=== PATIENT | female | born 1955 | race Caucasian/White ===

== ENCOUNTER 2017-07-08 10:45 | Outpatient (CLI) | payer BC ==
--- NOTE | 2017-07-08 12:22 | MMO ---
BILATERAL SCREENING MAMMOGRAM: INDICATION: Annual exam. COMPARISON: Prior exam dated 08/22/15. FINDINGS: The interpretation of this exam was assisted with computer-aided detection. The breast parenchyma is predominantly fatty replaced. There are benign-appearing calcifications within the right and left breasts. No suspicious mass, cluster of microcalcifications, or area of architectural distortion is evident. IMPRESSION: BI-RADS category 2 - benign. Recommend routine annual mammographic screening. POS: JOHN
== END 2017-07-08 10:46 | disposition home or self-care (01) ==
LOC: MAMMO 10:45
PROVIDERS: ATTEND Family Medicine
DX: Z12.31 Encounter for screening mammogram for malignant neoplasm of breast (principal)
CPT/HCPCS: 77067; G0202

== ENCOUNTER 2019-02-08 11:53 | Outpatient (CLI) | payer OTHER ==
--- NOTE | 2019-02-08 12:49 | MMO ---
Bilateral MAMMO Bilat Screen [id number]. CLINICAL HISTORY: Patient is 63 years old and is seen for screening. The patient has no family history of breast cancer. The patient has no personal history of cancer. VIEWS: The views performed were: bilateral craniocaudal with tomosynthesis and bilateral mediolateral oblique with tomosynthesis. FILMS COMPARED: The present examination has been compared to prior imaging studies performed at [facility] on 06/06/2010, 08/25/2011, 12/20/2013, 08/17/2015 and 07/08/2017. MAMMOGRAM FINDINGS: The breasts are almost entirely fat. There are benign appearing calcifications seen in both breasts. There are no suspicious masses, suspicious calcifications, or new areas of architectural distortion. IMPRESSION: THERE IS NO MAMMOGRAPHIC EVIDENCE OF MALIGNANCY. A ROUTINE FOLLOW-UP MAMMOGRAM IN 1 YEAR IS RECOMMENDED. THE RESULTS OF THIS EXAM WERE SENT TO THE PATIENT. ACR BI-RADS Category 2 - Benign finding MAMMOGRAPHY NOTE: 1. A negative mammogram report should not delay a biopsy if a dominant of clinically suspicious mass is present. 2. Approximately 10% to 15% of breast cancers are not detected by mammography. 3. Adenosis and dense breasts may obscure an underlying neoplasm.
== END 2019-02-08 11:54 | disposition home or self-care (01) ==
LOC: BICMAMMO 11:53
PROVIDERS: ATTEND Nurse Practitioner Family
DX: Z12.31 Encounter for screening mammogram for malignant neoplasm of breast (principal)
CPT/HCPCS: 77063; 77067

== ENCOUNTER 2021-02-14 14:41 | Outpatient (CLI) | payer BC | END 2021-02-14 14:42 | disposition home or self-care (01) | LOC: BICMAMMO 14:41 | PROVIDERS: ATTEND Nurse Practitioner Family | DX: Z12.31 Encounter for screening mammogram for malignant neoplasm of breast (principal) | CPT/HCPCS: 77063; 77067 ==

== ENCOUNTER 2021-05-08 15:48 | Inpatient (IN) | payer BC ==
[~2021-05-08 15:48] MED LIST: Iopamidol-370 76% 500 ML 1 ML ONE
[2021-05-08 18:07] LABS: #Basophils 0.1 thou/uL (0.0-0.2); #Eosinphils 0.1 thou/uL (0.0-0.7); #Lymphocytes 2.7 thou/uL (1.20-3.40); #Neutrophils 4.9 thou/uL (1.40-6.50); %Basophils 0.6 % (0.0-1.0); %Eosinophils 0.6 % (0.0-10.0); %Lymphocytes 30.8 % (21.0-51.0); %Monocytes 11.5 % (0.0-10.0); %Neutrophils 56.5 % (42.0-75.0); Hemoglobin 12.5 g/dL (12.0-16.0); Mean Corpuscular Hemoglobin 29.2 pg (27.0-31.0); Mean Corpuscular Volume 88.4 fL (78.0-98.0); Platelet Count 252 thou/uL (130-400); RBC Distribution Width 13.2 % (11.5-14.5); White Blood Cell (WBC) Count 8.7 thou/uL (4.8-10.8)
[2021-05-08 18:31] LABS: ALT (SGPT) 15 U/L (8-55); AST (SGOT) 11 U/L (5-34); Alkaline Phosphatase 85 U/L (40-110); Anion Gap 14 mmol/L (10-20); BUN (Urea Nitrogen) 11 mg/dL (9.8-20.1); Bilirubin, Total 0.4 mg/dL (0.2-1.2); Calc. Creatinine Clearance 0 mL/min (70-130); Calcium 9.1 mg/dL (7.8-10.44); Carbon Dioxide 23 mmol/L (23-31); Chloride 105 mmol/L (98-107); Globulin 3.1 g/dL (2.4-3.5); Glucose 122 mg/dL (80-115); Potassium 4.5 mmol/L (3.5-5.1); Protein, Total 7.1 g/dL (5.8-8.1); Sodium 137 mmol/L (136-145)
[2021-05-08] MEDS ORDERED: Enoxaparin Sodium 100 MG/ML SYRINGE ONE (21:16)
[2021-05-08 21:42] LABS: INR-International Normal Ratio 1.1; Prothrombin Time 14.5 sec (12.0-14.7)
[2021-05-08 21:43] LABS: PTT 30.1 sec (22.9-36.1)
[2021-05-09 01:16] LABS: SARS-CoV-2 NAA Rapid Test Not Detected (NotDetected)
[2021-05-09] MEDS ORDERED: Ondansetron PF 4 MG/2 ML Vial IVP PRN (02:50)
[2021-05-09] MEDS ORDERED: Ondansetron ODT 4 MG TAB PO PRN (02:50)
[2021-05-09] MEDS ORDERED: Piperacillin/Tazobactam 3.375 GM in Sodium Chloride 0.9% 100 ML IVPB SCH ×2 (03:15→12:00)
[2021-05-09] MEDS ORDERED: Piperacillin/Tazobactam 3.375 GM VIAL ONE ×2 (04:21→11:55)
[2021-05-09] MEDS: Sodium Chloride 0.9% 1,000 ML IV SCH ×2 (04:39→12:18)
[2021-05-09 04:56] LABS: Anion Gap 12 mmol/L (10-20); BUN (Urea Nitrogen) 10 mg/dL (9.8-20.1); Calc. Creatinine Clearance 129 mL/min (70-130); Calcium 8.6 mg/dL (7.8-10.44); Carbon Dioxide 20 mmol/L (23-31); Chloride 108 mmol/L (98-107); Glucose 123 mg/dL (80-115); Potassium 3.8 mmol/L (3.5-5.1); Sodium 136 mmol/L (136-145)
[2021-05-09 04:57] LABS: Band 2 % (5-11); Hemoglobin 11.9 g/dL (12.0-16.0); Hypochromia SLIGHT = 6-15 cells (100X) (0-5/hpf); Lymphocytes 32 % (21-51); MDiff Complete? YES; Mean Corpuscular HGB CONC 33.2 g/dL (32.0-36.0); Mean Corpuscular Hemoglobin 29.2 pg (27.0-31.0); Mean Corpuscular Volume 87.9 fL (78.0-98.0); Mean Platelet Volume 8.3 fL (7.4-10.4); Monocytes 11 % (0-10); Neutrophil 55 % (42-75); Platelet Count 199 thou/uL (130-400); RBC Distribution Width 13.2 % (11.5-14.5); Red Blood Cell (RBC) Count 4.06 mill/uL (4.20-5.40); White Blood Cell (WBC) Count 6.9 thou/uL (4.8-10.8)
[2021-05-09] MEDS ORDERED: Zolpidem Tartrate 5 MG TAB PO PRN (09:04)
[2021-05-09] MEDS ORDERED: Cepastat Lozenges 1 LOZ PO PRN (09:04)
[2021-05-09] MEDS ORDERED: Hydrocerin (Eucerin) Cream 120 gm Jar TOP PRN (09:04)
[2021-05-09] MEDS ORDERED: Benzonatate 100 MG CAP PO PRN (09:04)
[2021-05-09] MEDS ORDERED: Calcium Carbonate 500 MG ChewTAB PO PRN (09:04)
[2021-05-09] MEDS ORDERED: Senokot S 8.6-50 MG TAB PO PRN (09:04)
[2021-05-09] MEDS ORDERED: Loperamide HCl 2 MG CAP PO PRN (09:04)
[2021-05-09] MEDS ORDERED: Loratadine 10 MG TAB PO PRN (09:04)
[2021-05-09] MEDS ORDERED: Artificial Tear Sol 15 ML BOT EA EYE PRN (09:04)
[2021-05-09] MEDS ORDERED: hydrALAZINE 20 MG/ML VIAL SLOW IVP PRN (09:04)
[2021-05-09] MEDS ORDERED: Bisacodyl 5 MG TAB PO PRN (09:04)
[2021-05-09] MEDS ORDERED: GUAIFENESIN SF SOLN 200 MG/10 ML UDCUP PO PRN (09:04)
[2021-05-09] MEDS ORDERED: Sodium Chloride 0.65% Nasal 44 ML BOT EA NARE PRN (09:04)
[2021-05-09] MEDS ORDERED: Enoxaparin Sodium 100 MG/ML SYRINGE ONE (09:05)
[2021-05-09] MEDS: Enoxaparin Sodium 100 MG/ML SYRINGE SC SCH ×2 (09:24→21:09)
[2021-05-09] MEDS ORDERED: Adenosine 6 MG/2 ML VIAL ONE (15:58)
[2021-05-09 16:14] VITALS: BMI 42.2
[2021-05-09] MEDS: HYDROcodone/Acetaminophen 5/325 mg Tablet PO PRN (21:09)
[2021-05-10] MEDS: Sodium Chloride 0.9% 1,000 ML IV SCH (02:45)
[2021-05-10 04:57] LABS: #Basophils 0.1 thou/uL (0.0-0.2); #Eosinphils 0.2 thou/uL (0.0-0.7); #Lymphocytes 2.2 thou/uL (1.20-3.40); #Monocytes 0.6 thou/uL (0.11-0.59); #Neutrophils 2.4 thou/uL (1.40-6.50); %Basophils 0.9 % (0.0-1.0); %Eosinophils 3.1 % (0.0-10.0); %Lymphocytes 40.4 % (21.0-51.0); %Monocytes 11.5 % (0.0-10.0); %Neutrophils 44.1 % (42.0-75.0); Mean Corpuscular HGB CONC 32.9 g/dL (32.0-36.0); Mean Corpuscular Volume 88.1 fL (78.0-98.0); Mean Platelet Volume 8.3 fL (7.4-10.4); Platelet Count 214 thou/uL (130-400); Red Blood Cell (RBC) Count 3.46 mill/uL (4.20-5.40); White Blood Cell (WBC) Count 5.4 thou/uL (4.8-10.8)
[2021-05-10 05:32] LABS: ALT (SGPT) 9 U/L (8-55); AST (SGOT) 9 U/L (5-34); Albumin 3.1 g/dL (3.4-4.8); Alkaline Phosphatase 66 U/L (40-110); Anion Gap 11 mmol/L (10-20); BUN (Urea Nitrogen) 8 mg/dL (9.8-20.1); Bilirubin, Total 0.7 mg/dL (0.2-1.2); Calc. Creatinine Clearance 126 mL/min (70-130); Carbon Dioxide 20 mmol/L (23-31); Chloride 110 mmol/L (98-107); Globulin 2.5 g/dL (2.4-3.5); Glucose 117 mg/dL (80-115); Magnesium 1.8 mg/dL (1.6-2.6); Phosphorus 2.8 mg/dL (2.3-4.7); Potassium 3.7 mmol/L (3.5-5.1); Protein, Total 5.6 g/dL (5.8-8.1); Sodium 137 mmol/L (136-145)
[2021-05-10] MEDS: Enoxaparin Sodium 100 MG/ML SYRINGE SC SCH ×2 (08:45→21:20)
[2021-05-10] MEDS ORDERED: Furosemide 20 MG/2 ML VIAL SLOW IVP SCH (11:00)
[2021-05-10] MEDS: medroxyPROGESTERone Acetate 5 MG TAB PO SCH ×2 (13:07→21:21)
[2021-05-10] MEDS: HYDROcodone/Acetaminophen 5/325 mg Tablet PO PRN (14:34)
[2021-05-11] MEDS: medroxyPROGESTERone Acetate 5 MG TAB PO SCH ×3 (04:11→20:41)
[2021-05-11] MEDS: Enoxaparin Sodium 100 MG/ML SYRINGE SC SCH (08:54)
[2021-05-11] MEDS: Ferrous Sulfate 325 MG TAB PO SCH (16:03)
[2021-05-11] MEDS: HYDROcodone/Acetaminophen 5/325 mg Tablet PO PRN (18:58)
[2021-05-11] MEDS: Apixaban 5 MG TAB PO SCH (20:40)
[2021-05-12] MEDS: HYDROcodone/Acetaminophen 5/325 mg Tablet PO PRN (04:24)
[2021-05-12] MEDS: medroxyPROGESTERone Acetate 5 MG TAB PO SCH (04:26)
[2021-05-12 04:48] LABS: #Eosinphils 0.1 thou/uL (0.0-0.7); #Lymphocytes 2.4 thou/uL (1.20-3.40); #Monocytes 0.6 thou/uL (0.11-0.59); #Neutrophils 1.9 thou/uL (1.40-6.50); %Lymphocytes 47.7 % (21.0-51.0); %Monocytes 12.2 % (0.0-10.0); Mean Corpuscular HGB CONC 32.4 g/dL (32.0-36.0); Mean Corpuscular Hemoglobin 28.6 pg (27.0-31.0); Mean Corpuscular Volume 88.2 fL (78.0-98.0); Mean Platelet Volume 7.9 fL (7.4-10.4); Platelet Count 252 thou/uL (130-400); Red Blood Cell (RBC) Count 3.48 mill/uL (4.20-5.40)
[2021-05-12 05:11] LABS: Anion Gap 12 mmol/L (10-20); BUN (Urea Nitrogen) 7 mg/dL (9.8-20.1); Calc. Creatinine Clearance 122 mL/min (70-130); Calcium 8.7 mg/dL (7.8-10.44); Carbon Dioxide 26 mmol/L (23-31); Chloride 105 mmol/L (98-107); Glucose 112 mg/dL (80-115); Potassium 3.6 mmol/L (3.5-5.1); Sodium 139 mmol/L (136-145)
[2021-05-12 09:08] LABS: Hemoglobin 9.9 g/dL (12.0-16.0); Platelet Count 237 thou/uL (130-400)
[2021-05-12 09:22] VITALS: BP 143/62; TEMP 98.4
[2021-05-12] MEDS: Ferrous Sulfate 325 MG TAB PO SCH (09:22)
[2021-05-12] MEDS: Apixaban 5 MG TAB PO SCH (09:22)
[2021-05-12 09:29] LABS: Calc. Creatinine Clearance 138 mL/min (70-130)
== END 2021-05-12 10:35 | disposition home or self-care (01) | DRG 176 ==
LOC: ERS 15:48 → 2NO 21:26 → ERHOLD 21:38 → OBSVTOIN 05-09 09:05 → 2NO 05-09 16:26
PROVIDERS: ADMIT Internal Medicine; ATTEND Internal Medicine
DX: I26.99 Other pulmonary embolism without acute cor pulmonale (principal); Z68.41 Body mass index [BMI] 40.0-44.9, adult; N94.89 Other specified conditions associated with female genital organs and menstrual cycle; R53.81 Other malaise; D64.9 Anemia, unspecified; E66.9 Obesity, unspecified; K76.0 Fatty (change of) liver, not elsewhere classified; D18.03 Hemangioma of intra-abdominal structures; Z20.822 Contact with and (suspected) exposure to COVID-19; Z90.49 Acquired absence of other specified parts of digestive tract; Z93.3 Colostomy status
CPT/HCPCS: 0240U; 36415; 71045; 71275; 74177; 76856; 80048; 80053; 83735; 83880; 84100; 84484; 85025; 85379; 85610; 85730; 93005; 93306; 96372; G0378; J0153; J1650; J1940; J2543; J3490; Q9967

== ENCOUNTER 2021-05-14 | Emergency (ER) | payer BC | END 2021-05-14 19:32 | disposition short-term general hospital (02) | DX: N93.9 Abnormal uterine and vaginal bleeding, unspecified (principal) ==

== ENCOUNTER 2021-09-17 10:35 | Outpatient (CLI) | payer BC | END 2021-09-17 10:36 | disposition home or self-care (01) | LOC: BICCT 10:35 | PROVIDERS: ATTEND Specialist | DX: Z48.815 Encounter for surgical aftercare following surgery on the digestive system (principal); Z93.3 Colostomy status; Z90.49 Acquired absence of other specified parts of digestive tract; R16.0 Hepatomegaly, not elsewhere classified | CPT/HCPCS: 74177; 82565; Q9967 ==

== ENCOUNTER 2021-12-12 12:15 | Inpatient (IN) | payer BC ==
[2021-12-17] MEDS ORDERED: Acetaminophen 500 MG TAB ONE ×2 (06:15)
[2021-12-17] MEDS ORDERED: Ketorolac Tromethamine 30 MG/ML VIAL ONE (06:15)
[2021-12-17] MEDS ORDERED: Lidocaine 1% w/Epinephrine 1:100K 30 ML VIAL ONE (06:38)
[2021-12-17] MEDS ORDERED: Bupivacaine 0.25% 10 ML VIAL ONE ×2 (06:38)
[2021-12-17] MEDS ORDERED: Fentanyl 100 MCG/2 ML VIAL ONE ×2 (06:45→07:09)
[2021-12-17] MEDS ORDERED: Midazolam HCl 2 mg/2 ml Vial ONE (07:09)
[2021-12-17] MEDS ORDERED: Lidocaine 2% Jelly 5 ML TUBE ONE (07:09)
[2021-12-17] MEDS ORDERED: cefOXitin 2 GM VIAL ONE (07:22)
[2021-12-17] MEDS ORDERED: Sodium Chloride 0.9% 100 ML ONE (07:22)
[2021-12-17] MEDS ORDERED: Bupivacaine HCl 0.5%/Epinephrine 1:200,000/PF 30 ml Vial ONE (07:25)
[2021-12-17] MEDS ORDERED: Dexamethasone 20 MG/5 ML VIAL ONE (07:34)
[2021-12-17] MEDS ORDERED: Rocuronium Bromide 10 MG/ML (10ML VIAL) ONE (07:34)
[2021-12-17] MEDS ORDERED: Glycopyrrolate 0.2 MG/ML 5 ML SYRINGE ONE (07:34)
[2021-12-17] MEDS ORDERED: Esmolol 100 MG/10 ML VIAL ONE (07:34)
[2021-12-17] MEDS ORDERED: Ondansetron PF 4 MG/2 ML Vial ONE (07:34)
[2021-12-17] MEDS ORDERED: PHENYLEPHRINE-NS 100 MCG/ML 10 ML SYRINGE ONE ×2 (07:34→09:44)
[2021-12-17] MEDS ORDERED: PROPOFOL 200 MG/20 ML VIAL ONE (07:34)
[2021-12-17] MEDS ORDERED: Lidocaine 1% PF 5 ML VIAL ONE (07:34)
[2021-12-17] MEDS ORDERED: ePHEDrine 50 MG/ML VIAL ONE (07:34)
[2021-12-17] MEDS ORDERED: cefOXitin Sodium/Dextrose 2 GM/50 ML BAG ONE (10:38)
[2021-12-17] MEDS ORDERED: Ondansetron HCl/PF 4 MG/2 ML Vial IVP PRN (10:57)
[2021-12-17] MEDS ORDERED: Promethazine HCl 25 MG/ML VIAL IVPB PRN (10:57)
[2021-12-17] MEDS ORDERED: Promethazine HCl 25 MG/ML VIAL IM PRN ×2 (10:57→12:12)
[2021-12-17] MEDS ORDERED: HYDROmorphone 2 MG/ML VIAL SLOW IVP PRN (10:57)
[2021-12-17] MEDS ORDERED: hydrALAZINE 20 MG/ML VIAL SLOW IVP PRN (12:12)
[2021-12-17] MEDS ORDERED: Morphine 4 MG/ML VIAL SLOW IVP PRN ×2 (12:12→12:35)
[2021-12-17] MEDS ORDERED: Ondansetron PF 4 MG/2 ML Vial IVP PRN (12:12)
[2021-12-17] MEDS: D5 1/2 NS w/20 mEq KCL 1,000 ML IV SCH ×2 (14:53→21:21)
[2021-12-17] MEDS: Ketorolac Tromethamine 30 MG/ML VIAL IVP SCH ×2 (14:54→17:26)
[2021-12-17 15:31] VITALS: BMI 37.8
[2021-12-17] MEDS: Famotidine/PF 20 mg/2ml Vial SLOW IVP SCH (17:33)
[2021-12-17] MEDS: Famotidine 20 MG TAB PO SCH (21:20)
[2021-12-17] MEDS: Enoxaparin Sodium 40 MG/0.4 ML SYRINGE SC SCH (21:20)
[2021-12-17] MEDS: medroxyPROGESTERone Acetate 5 MG TAB PO SCH (21:23)
[2021-12-18] MEDS: Ketorolac Tromethamine 30 MG/ML VIAL IVP SCH ×6 (00:15→23:59)
[2021-12-18] MEDS: D5 1/2 NS w/20 mEq KCL 1,000 ML IV SCH ×3 (05:56→19:51)
[2021-12-18 06:17] LABS: Anion Gap 14 mmol/L (10-20); BUN (Urea Nitrogen) 4 mg/dL (9.8-20.1); Calc. Creatinine Clearance 109 mL/min (70-130); Calcium 8.6 mg/dL (7.8-10.44); Carbon Dioxide 17 mmol/L (23-31); Chloride 109 mmol/L (98-107); Glucose 143 mg/dL (80-115); Potassium 4.4 mmol/L (3.5-5.1); Sodium 136 mmol/L (136-145)
[2021-12-18 08:00] LABS: #Monocytes 1.1 thou/uL (0.11-0.59); %Basophils 0.1 % (0.0-1.0); %Eosinophils 0.1 % (0.0-10.0); %Lymphocytes 19.5 % (21.0-51.0); %Monocytes 10.8 % (0.0-10.0); %Neutrophils 69.4 % (42.0-75.0); Hemoglobin 12.9 g/dL (12.0-16.0); Mean Corpuscular HGB CONC 32.5 g/dL (32.0-36.0); Mean Corpuscular Hemoglobin 30.4 pg (27.0-31.0); Mean Corpuscular Volume 93.6 fL (78.0-98.0); Mean Platelet Volume 7.1 fL (7.4-10.4); Platelet Count 260 thou/uL (130-400); Red Blood Cell (RBC) Count 4.25 mill/uL (4.20-5.40)
[2021-12-18] MEDS: Famotidine 20 MG TAB PO SCH ×2 (09:19→19:49)
[2021-12-18] MEDS: Famotidine/PF 20 mg/2ml Vial SLOW IVP SCH ×2 (09:20→19:51)
[2021-12-18] MEDS: medroxyPROGESTERone Acetate 5 MG TAB PO SCH ×2 (09:20→19:49)
[2021-12-18] MEDS ORDERED: HYDROcodone/Acetaminophen 7.5/325 mg Tablet PO PRN (11:44)
[2021-12-18] MEDS: Enoxaparin Sodium 40 MG/0.4 ML SYRINGE SC SCH (19:49)
[2021-12-19] MEDS ORDERED: D5 1/2 NS w/20 mEq KCL 1,000 ML IV SCH (05:30)
[2021-12-19] MEDS: Ketorolac Tromethamine 30 MG/ML VIAL IVP SCH (05:37)
[2021-12-19] MEDS: D5 1/2 NS w/20 mEq KCL 1,000 ML IV SCH (06:44)
[2021-12-19 08:07] VITALS: BP 124/79; TEMP 98.2
[2021-12-19] MEDS: Famotidine 20 MG TAB PO SCH (09:35)
[2021-12-19] MEDS: medroxyPROGESTERone Acetate 5 MG TAB PO SCH (09:35)
[2021-12-19] MEDS: Famotidine/PF 20 mg/2ml Vial SLOW IVP SCH (09:36)
== END 2021-12-19 11:13 | disposition home or self-care (01) | DRG 330 ==
LOC: SURG A 12-17 05:44
PROVIDERS: ADMIT Specialist; ATTEND Specialist
PROC: 0DBN0ZZ Excision of Sigmoid Colon, Open Approach (ICD-10-PCS; principal; 2021-12-17)
PROC: 0WQF0ZZ Repair Abdominal Wall, Open Approach (ICD-10-PCS; 2021-12-17)
DX: Z43.3 Encounter for attention to colostomy (principal); K57.32 Diverticulitis of large intestine without perforation or abscess without bleeding; K43.5 Parastomal hernia without obstruction or gangrene; K43.9 Ventral hernia without obstruction or gangrene; E66.01 Morbid (severe) obesity due to excess calories; Z68.37 Body mass index [BMI] 37.0-37.9, adult; Z90.49 Acquired absence of other specified parts of digestive tract; Z88.3 Allergy status to other anti-infective agents; Z88.2 Allergy status to sulfonamides
CPT/HCPCS: 36415; 80048; 85025; 88307; A4649; C1889; J0694; J1100; J1650; J1885; J2250; J2405; J2704; J3010; J3480; J3490; S0020; S0028

== ENCOUNTER 2022-02-17 12:13 | Outpatient (CLI) | payer BC | END 2022-02-17 12:14 | disposition home or self-care (01) | LOC: BICMAMMO 12:13 | PROVIDERS: ATTEND Nurse Practitioner Family | DX: Z12.31 Encounter for screening mammogram for malignant neoplasm of breast (principal) | CPT/HCPCS: 77063; 77067 ==

== ENCOUNTER 2022-07-24 06:54 | Observation (INO) | payer MEDICARE, BC ==
[2022-07-23 11:25] VITALS: BMI 34.0
[2022-07-24] MEDS ORDERED: Acetaminophen 500 MG TAB ONE (07:10)
[2022-07-24] MEDS ORDERED: Ketorolac Tromethamine 30 MG/ML VIAL ONE (07:10)
[2022-07-24] MEDS ORDERED: Scopolamine 1.5 mg/72 hour Patch ONE (08:18)
[2022-07-24] MEDS ORDERED: fentaNYL Citrate/PF 100 MCG/2 ML SYRINGE ONE ×2 (09:24→11:21)
[2022-07-24] MEDS ORDERED: Famotidine/PF 20 mg/2ml Vial ONE (09:33)
[2022-07-24] MEDS ORDERED: CEFAZOLIN 2 GM VIAL ONE (09:45)
[2022-07-24] MEDS ORDERED: Sodium Chloride 0.9% 100 ML ONE (09:45)
[2022-07-24] MEDS ORDERED: diphenhydrAMINE 50 MG/ML VIAL ONE (09:48)
[2022-07-24] MEDS ORDERED: Metoclopramide HCl 10 MG/2 ML VIAL ONE (09:48)
[2022-07-24] MEDS ORDERED: Glycopyrrolate 0.2 MG/ML 5 ML SYRINGE ONE (09:48)
[2022-07-24] MEDS ORDERED: Ondansetron PF 4 MG/2 ML Vial ONE (09:48)
[2022-07-24] MEDS ORDERED: PROPOFOL 200 MG/20 ML VIAL ONE (09:48)
[2022-07-24] MEDS ORDERED: Dexamethasone 20 MG/5 ML VIAL ONE (09:48)
[2022-07-24] MEDS ORDERED: NEOSTIGMINE 3 MG/3 ML SYR 3 MG/3 ML SYRINGE ONE (09:48)
[2022-07-24] MEDS ORDERED: Rocuronium Bromide 10 MG/ML (10ML VIAL) ONE (09:48)
[2022-07-24] MEDS ORDERED: Bupivacaine/Epinephrine 0.25% 30 ML VIAL ONE (10:08)
[2022-07-24] MEDS ORDERED: diphenhydrAMINE 25 MG CAP PO PRN (12:13)
[2022-07-24] MEDS ORDERED: diphenhydrAMINE 50 MG/ML VIAL IVP PRN (12:13)
[2022-07-24] MEDS ORDERED: Promethazine HCl 25 MG/ML VIAL IVPB PRN (12:13)
[2022-07-24] MEDS ORDERED: diphenhydrAMINE 50 MG/ML VIAL IM PRN (12:13)
[2022-07-24] MEDS ORDERED: Ondansetron HCl/PF 4 MG/2 ML Vial IVP PRN (12:13)
[2022-07-24] MEDS ORDERED: Ondansetron PF 4 MG/2 ML Vial IVP PRN ×2 (12:13→15:23)
[2022-07-24] MEDS ORDERED: Zolpidem Tartrate 5 MG TAB PO PRN (12:13)
[2022-07-24] MEDS ORDERED: Promethazine HCl 25 MG/ML VIAL IM PRN ×2 (12:13)
[2022-07-24] MEDS ORDERED: Naloxone HCl 0.4 mg/ml Vial IV PRN (12:13)
[2022-07-24] MEDS ORDERED: Communication Order-Pharmacy FS SCH (12:15)
[2022-07-24] MEDS ORDERED: Fentanyl CADD 100 ML IVPB PRN (12:35)
[2022-07-24] MEDS ORDERED: Dextrose 5% in Water 1,000 ML IV PRN (15:23)
[2022-07-24] MEDS ORDERED: HYDROcodone/Acetaminophen 10/325 mg Tablet PO PRN (15:23)
[2022-07-24] MEDS ORDERED: traMADol HCl 50 MG TAB PO PRN ×2 (15:23)
[2022-07-24] MEDS ORDERED: Dextrose 50% Abboject 50 ML SYRINGE SLOW IVP PRN (15:23)
[2022-07-24] MEDS ORDERED: Morphine 4 MG/ML VIAL SLOW IVP PRN ×2 (15:23→15:52)
[2022-07-24] MEDS ORDERED: TETANUS, DIPHTHERIA TOX,ADULT (TDVAX) 0.5 ML VIAL IM ONE (15:23)
[2022-07-24] MEDS: D5 1/2 NS w/20 mEq KCL 1,000 ML IV SCH ×2 (17:07→20:24)
[2022-07-24] MEDS: Famotidine 20 MG TAB PO SCH (20:23)
[2022-07-25 06:22] LABS: #Lymphocytes 1.7 thou/uL (1.20-3.40); #Monocytes 0.9 thou/uL (0.11-0.59); #Neutrophils 8.2 thou/uL (1.40-6.50); %Basophils 0.1 % (0.0-1.0); %Eosinophils 0.1 % (0.0-10.0); %Lymphocytes 15.5 % (21.0-51.0); %Monocytes 8.7 % (0.0-10.0); %Neutrophils 75.6 % (42.0-75.0); Hemoglobin 11.8 g/dL (12.0-16.0); Mean Corpuscular HGB CONC 32.2 g/dL (32.0-36.0); Mean Corpuscular Hemoglobin 30.1 pg (27.0-31.0); Mean Corpuscular Volume 93.5 fl (78.0-98.0); Mean Platelet Volume 7.3 fL (7.4-10.4); Platelet Count 241 thou/uL (130-400); RBC Distribution Width 12.2 % (11.5-14.5); Red Blood Cell (RBC) Count 3.92 mill/uL (4.20-5.40); White Blood Cell (WBC) Count 10.8 thou/uL (4.8-10.8)
[2022-07-25 06:47] LABS: Anion Gap 10 mmol/L (10-20); BUN (Urea Nitrogen) 8 mg/dL (9.8-20.1); Calc. Creatinine Clearance 102 mL/min (70-130); Calcium 8.4 mg/dL (7.8-10.44); Carbon Dioxide 24 mmol/L (23-31); Chloride 105 mmol/L (98-107); Estimated GFR 94; Glucose 156 mg/dL (80-115); Potassium 3.9 mmol/L (3.5-5.1); Sodium 135 mmol/L (136-145)
[2022-07-25 08:28] VITALS: BP 128/75; TEMP 98.6
[2022-07-25] MEDS: Famotidine 20 MG TAB PO SCH (09:23)
[2022-07-25] MEDS ORDERED: HYDROcodone/Acetaminophen 10/325 mg Tablet PO PRN ×2 (09:53→09:54)
== END 2022-07-25 12:05 | disposition home or self-care (01) ==
LOC: SDC 06:54 → OBSVTOIN 15:06 → T4-B 15:06 → INTOOBSV 15:06
PROVIDERS: ADMIT Specialist; ATTEND Specialist
PROC: 0WUF0JZ Supplement Abdominal Wall with Synthetic Substitute, Open Approach (ICD-10-PCS; principal; 2022-07-24)
DX: K43.2 Incisional hernia without obstruction or gangrene (principal); E66.01 Morbid (severe) obesity due to excess calories; Z68.34 Body mass index [BMI] 34.0-34.9, adult; Z79.899 Other long term (current) drug therapy; Z88.1 Allergy status to other antibiotic agents; Z88.2 Allergy status to sulfonamides; Z20.822 Contact with and (suspected) exposure to COVID-19
CPT/HCPCS: 49560; 49568; 80048; 85025; 90714; 96374; C1781; C1889; G0378 ×2; J3010; U0003; U0005; 36415; J1100; J1200; J1885; J2405; J2704; J2765; J3480; J3490; S0028

== ENCOUNTER 2023-05-27 11:53 | Outpatient (CLI) | payer MEDICARE, BC | END 2023-05-27 11:54 | disposition home or self-care (01) | LOC: BICMAMMO 11:53 | PROVIDERS: ATTEND Nurse Practitioner Family | DX: Z12.31 Encounter for screening mammogram for malignant neoplasm of breast (principal) | CPT/HCPCS: 77063; 77067 ==

== ENCOUNTER 2023-12-18 09:46 | Outpatient (CLI) | payer MEDICARE, BC | END 2023-12-18 09:47 | disposition home or self-care (01) | LOC: BICULT 09:46 | PROVIDERS: ATTEND Nurse Practitioner Family | DX: M25.551 Pain in right hip (principal); M79.651 Pain in right thigh | CPT/HCPCS: 76999 ==

== ENCOUNTER 2024-03-29 10:34 | Outpatient (CLI) | payer MEDICARE, BC | END 2024-03-29 10:35 | disposition home or self-care (01) | LOC: BICRAD 10:34 | PROVIDERS: ATTEND Neurological Surgery | DX: M25.551 Pain in right hip (principal); M16.11 Unilateral primary osteoarthritis, right hip ==

== ENCOUNTER 2024-04-13 09:37 | Emergency (ER) | payer MEDICARE, BC | END 2024-04-13 10:37 | disposition home or self-care (01) | LOC: ERS 09:37 | DX: R03.0 Elevated blood-pressure reading, without diagnosis of hypertension (principal) | CPT/HCPCS: 93005 ==

== ENCOUNTER 2024-08-11 14:04 | Outpatient (CLI) | payer MEDICARE, BC | END 2024-08-11 14:05 | disposition home or self-care (01) | LOC: BICRAD 14:04 | PROVIDERS: ATTEND Nurse Practitioner Family | DX: Z01.818 Encounter for other preprocedural examination (principal) | CPT/HCPCS: 71046 ==

== ENCOUNTER 2024-08-31 12:54 | Outpatient (CLI) | payer MEDICARE, BC ==
[2024-08-31 14:48] LABS: #Basophils 0.03 10x3/uL (0.0-0.2); %Basophils 0.5 % (0.0-1.0); %Lymphocytes 33.8 % (21.0-51.0); %Monocytes 12.3 % (0.0-10.0); %Neutrophils 52.2 % (42.0-75.0); Hematocrit 44.9 % (36.0-47.0); Hemoglobin 14.6 g/dL (12.0-16.0); Mean Corpuscular HGB CONC 32.5 g/dL (32.0-36.0); Mean Corpuscular Hemoglobin 29.3 pg (27.0-31.0); Mean Platelet Volume 9.4 fL (7.4-10.4); Platelet Count 304 10x3/uL (130-400); RBC Distribution Width 13.2 % (11.5-14.5); Red Blood Cell (RBC) Count 4.99 mill/uL (4.20-5.40)
[2024-08-31 15:03] LABS: Prothrombin Time 12.8 sec (12.0-14.7)
[2024-08-31 15:05] LABS: Anion Gap 16 mmol/L (10-20); BUN (Urea Nitrogen) 13 mg/dL (9.8-20.1); Calc. Creatinine Clearance 0 mL/min (70-130); Calcium 9.4 mg/dL (7.8-10.44); Carbon Dioxide 26 mmol/L (23-31); Chloride 105 mmol/L (98-107); Estimated GFR 96; Glucose 88 mg/dL (80-115); Potassium 3.8 mmol/L (3.5-5.1); Sodium 143 mmol/L (136-145)
== END 2024-08-31 12:55 | disposition home or self-care (01) ==
LOC: LABBT 12:54
PROVIDERS: ATTEND Student in an Organized Health Care Education/Training Program
DX: Z01.818 Encounter for other preprocedural examination (principal); M16.11 Unilateral primary osteoarthritis, right hip
CPT/HCPCS: 80048; 85025; 85610; 85730; 87081; 93005; 93010

== ENCOUNTER 2025-06-01 10:51 | Outpatient (CLI) | payer MEDICARE, BC | END 2025-06-01 10:52 | disposition home or self-care (01) | LOC: BICMAMMO 10:51 | PROVIDERS: ATTEND Nurse Practitioner Family | DX: Z12.31 Encounter for screening mammogram for malignant neoplasm of breast (principal) | CPT/HCPCS: 77063; 77067 ==